=== PATIENT | female | born 1960 | race Hispanic/Latino ===

== ENCOUNTER 2018-07-23 11:00 | Day surgery (SDC) | payer MEDICARE ==
[2018-07-23] MEDS ORDERED: NEOFRIN OD ONE (11:21)
[2018-07-23] MEDS ORDERED: MYDRIACYL OD ONE (11:21)
[2018-07-23] MEDS ORDERED: IOPIDINE OD ONE (11:21)
[2018-07-23] MEDS ORDERED: IOPIDINE ONE (11:26)
[2018-07-23] MEDS ORDERED: MYDRIACYL ONE (11:26)
[2018-07-23] MEDS ORDERED: NEOFRIN ONE (11:26)
[2018-07-23 12:21] VITALS: BP 130/70
== END 2018-07-23 11:01 | disposition home or self-care (01) ==
LOC: OR 11:00
PROVIDERS: ATTEND Specialist
DX: E11.36 Type 2 diabetes mellitus with diabetic cataract (principal); H26.491 Other secondary cataract, right eye; I10 Essential (primary) hypertension; E78.00 Pure hypercholesterolemia, unspecified; M19.90 Unspecified osteoarthritis, unspecified site; K21.9 Gastro-esophageal reflux disease without esophagitis; F17.210 Nicotine dependence, cigarettes, uncomplicated; Z79.84 Long term (current) use of oral hypoglycemic drugs; Z79.899 Other long term (current) drug therapy; Z88.5 Allergy status to narcotic agent; Z88.1 Allergy status to other antibiotic agents; Z98.41 Cataract extraction status, right eye; Z90.710 Acquired absence of both cervix and uterus; Z85.42 Personal history of malignant neoplasm of other parts of uterus; Z98.890 Other specified postprocedural states
CPT/HCPCS: 82962

== ENCOUNTER 2019-08-06 11:22 | Day surgery (SDC) | payer MEDICARE ==
[~2019-08-06 11:22] MED LIST: IOPIDINE ONE; MYDRIACYL ONE; NEOFRIN ONE
[2019-08-06] MEDS ORDERED: MYDRIACYL OS ONE (11:58)
[2019-08-06] MEDS ORDERED: IOPIDINE OS ONE ×2 (11:58→12:53)
[2019-08-06] MEDS ORDERED: NEOFRIN OS ONE (11:58)
[2019-08-06 12:45] VITALS: BP 134/69
== END 2019-08-06 12:55 | disposition home or self-care (01) ==
LOC: OR 11:22
PROVIDERS: ATTEND Specialist
DX: E11.36 Type 2 diabetes mellitus with diabetic cataract (principal); H26.492 Other secondary cataract, left eye; E11.42 Type 2 diabetes mellitus with diabetic polyneuropathy; G62.9 Polyneuropathy, unspecified; E78.00 Pure hypercholesterolemia, unspecified; I10 Essential (primary) hypertension; K21.9 Gastro-esophageal reflux disease without esophagitis; F17.210 Nicotine dependence, cigarettes, uncomplicated; M19.90 Unspecified osteoarthritis, unspecified site; Z88.5 Allergy status to narcotic agent; Z88.6 Allergy status to analgesic agent; Z79.899 Other long term (current) drug therapy; Z98.41 Cataract extraction status, right eye; Z98.42 Cataract extraction status, left eye; Z90.710 Acquired absence of both cervix and uterus; Z98.890 Other specified postprocedural states
CPT/HCPCS: 82962